=== PATIENT | male | born 1975 | race African-American/Black ===

== ENCOUNTER 2025-01-22 11:12 | Outpatient (AMB) | payer OTHER, SELFPAY ==
--- NOTE | 2025-01-22 11:15 | A.OFFPC_ITS ---
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 He is not on prescription medication. He relocated to the [facility] from [facility] 2 years ago. He has not established with a PCP. Prior PCP? - Never been established with a PCP Acute issue(s) - None Past Medical History - Glaucoma both eye, myopia(wears glasse s) Surgical History - Appendectomy Family History - PGM: HLD - MGM: Alcohol abuse Social History - Nonsmoker. Does not vape. Drinks 2 gla sses of wine once monthly. Denies recreational drug use - Has been making healthy dietary choice s. Active but does not exercise. Reports difficulty staying asleep, sleeps an average of 4-5 hours, snores only when tired Health maintenance - Last eye exam was 3 years ago in [facility]. He has an eye appointment with [facility] in 03/2024 - Last dental visit was last month - Last tetanus vaccine was more than 10 years ago; received Tdap vaccine today - Has not been vaccinated for the flu ; receives the vaccination today - He has never had the shingles vaccine. Encouraged to get the vaccine from the local pharmacy - He has never had a colonoscopy. Referr ed to [facility] gastroenterology for colonoscopy Specialists - None [facility] Medical History (Updated 01/22/25 @ 12:24 by Zeke Yeh CNP) Glaucoma Surgical History (Updated 01/22/25 @ 12:20 by Zeke Yeh CNP) Hx of appendectomy Family History (Updated 01/22/25 @ 11:38 by ROQUE Hawkins) Paternal Grandfather High cholesterol Maternal Grandmother Alcohol abuse Social History (Updated 01/22/25 @ 11:25 by ROQUE Hawkins) Housing: Apartment Patient Tobacco Use Status: Never used Tobacco e-Cigarette/Vaping Use: Never Used Second Hand Smoke Exposure: No service: No 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al status: employed 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 1. Little interest or pleasure in doing things: not at all 2. Feeling down, depressed, or hopeless: not at all 3. Trouble falling or staying asleep, or sleeping too much: nearly every day 4. Feeling tired or having little energy: not at all 5. Poor appetite or overeating: not at all 6. Feeling bad about yourself - or that you are a failure or have let yourself or your family down: not at all 7. Trouble concentrating on things, such as reading the newspaper or watching television: not at all 8. Moving or speaking so slowly that other people could have noticed. Or the opposite - being so fidgety or restless that you have been moving around a lot more than usual: not at all 9. Thoughts that you would be better off or of hurting yourself in some way: not at all Total score: 3 Depression Screening Interpretation: Negative Depression Screening Done: Yes 48739 - PHQ-9 Billing: Yes Source: Developed by Drs. Ankit Perkins, Neisha Barrientos, Feng Dan and colleagues, with an educational meagan from [employer]. Thrive Questionnaire Date Thrive assessed: 01/22/25 I am a: Patient What is your living situation today?: I have a steady place to live Within the past 12 months, did the food you bought not last and you didn't have the money to get more?: Never true Within the past 12 months, did you worry whether your food would run out before you got money to buy more?: Never true Do you have trouble paying for medicines?: No Do you have trouble getting transportation to medical appointments?: No Do you have trouble paying your heating and electricity bill?: No Do you have trouble taking care of your child, family member or friend?: No Do you have trouble with day-to-day activities such as bathing, preparing meals, shopping, managing finances, etc.?: No Are you currently unemployed and looking for a job?: No Are you interested in more education?: Yes Please select the resources that you would like help with: Education Currently or been in a relationship where the following occur: No concerns reported THRIVE Score: 0 AUDIT C Alcohol Use Questionnaire (AUDIT-C) 1. How often do you have a drink containing alcohol?: 2-4 times a month 2. How many drinks containing alcohol do you have on a typical day when you are drinking?: 3 or 4 3. How often do you have six or more drinks on one occasion?: Less than monthly Total Score: 4 Score Reviewed/Action Taken: Yes CHRISTINE-7 AMB Questionnaire CHRISTINE-7 Date CHRISTINE - 7 assessed: 01/22/25 Feeling nervous, anxious, or on edge: 0 = Not at all Not being able to stop or control worryin = Not at all Worrying too much about different things: 0 = Not at all Trouble relaxin = Not at all Being so restless that it is hard to sit still: 1 = Several days Becoming easily annoyed or irritable: 0 = Not at all Feeling afraid as if something awful might happen: 0 = Not at all Total CHRISTINE-7 score (0-4 normal; 5-9 mild; 10-14 moderate; 15-21 severe): 1 Source: Developed by Drs. Ankit Perkins, Neisha Barrientos, Feng Dan and colleagues, with an educational meagan from [employer]. CHRISTINE-7 Assessment Billing CHRISTINE-7 Assessment Tool: CHRISTINE-7 Assessment 90667 Review of Systems Const Details: Denies chills, Denies fatigue, Denies fever(s), Denies headache(s) and Denies weakness HEENT Denies change in vision, Denies dizziness, Denies headache(s), Denies hearing loss, Denies nasal congestion, Denies sinus pain, Denies sinus pressure and Denies sore throat Card Denies chest pain, Denies lightheadedness, Denies dyspnea and Denies other (palpitations) Resp Denies cough, Denies dyspnea and Denies wheezing GI Denies abdominal pain, Denies melena, Denies hematochezia, Denies change in bowel habits, Denies dyspepsia and Denies nausea Denies hematuria and Denies dysuria Musc Denies abnormal gait, Denies myalgias, Denies arthralgias, Denies numbness and Denies tingling Skin/Breast Denies rash, Denies unusual bruising and Denies wounds Neuro Denies abnormal gait, Denies dizziness, Denies headache(s), Denies memory loss, Denies numbness, Denies Sensory deficit (Neuro), Denies tingling and Denies weakness Psych Denies anxiety, Denies depression and Denies memory loss Endo Denies cold intolerance, Denies fatigue, Denies heat intolerance, Denies polydipsia and Denies polyuria Jose/Lymph Denies easy bleeding and Denies easy bruising Aller/Immun Denies wheezing Physical exam (Primary Care) Vital Signs: Last Vital Signs Temp 98.0 F 01/22/25 11:25 Pulse 59 01/22/25 11:25 Resp 16 01/22/25 11:25 BP 112/64 01/22/25 11:25 Pulse Ox 98 01/22/25 11:25 Oxygen Delivery Method Room Air 01/22/25 11:25 BMI result Body Mass Index 26.4 Tobacco/Smoking Status: Tobacco use Status Tobacco use date assessed 01/22/25 01/22/25 11:25 Patient Tobacco Use Status Never used Tobacco 01/22/25 11:25 e-Cigarette/Vaping Use Never Used 01/22/25 11:25 PHQ-9: PHQ-9 Score PHQ-9: Total score 3 01/22/25 12:37 Depression Screening Interpretation: Negative Thrive Assessment: Date of Thrive Assessment Date Thrive assessed 01/22/25 01/22/25 11:19 Currently or been in a relationship where the following occur: No concerns reported Const Other: General: no acute distress, well developed, alert and awake Nutritional Appearance: well nourished Orientation/consciousness: patient oriented x3 HENMT Head: Yes normocephalic and Yes atraumatic Ears: hearing grossly normal bilaterally and TM's normal bilaterally General nose exam: Normal external nose present and Normal nares present Mouth: Normal oral and palatal mucosa present and moist mucous membranes Teeth and gingiva: dentition normal Throat: Yes oropharynx normal Eyes Pupils: Equal, round and reactive pupils present and Pupil accommodation reflex normal EOM: EOMs intact bilaterally Neck Neck: Yes normal visual inspection, Yes no lymphadenopathy and Yes trachea midline Thyroid: Thyroid normal Carotids: no bruits Lymphatic: no lymphadenopathy noted Chest Chest palpation & inspection: normal inspection of the chest Resp Effort & Inspection: normal respiratory effort Auscultation: clear to auscultation bilaterally Cardio Rate: regular rate Rhythm: regular rhythm Heart sounds: S1 normal heart sound present, S2 normal heart sound present, no gallops, no murmurs and no rubs Bruits: no abdominal aortic bruits and no carotid bruits GI Palpation (GI): No Abdominal aortic bruit present, Soft to palpation, nontender, No hepatosplenomegaly present and No Rebound tenderness present Auscultation: normal bowel sounds General: Yes no CVA tenderness Back/Spine/Pelvis Back: no CVA tenderness Cervical Spine: cervical ROM normal and No Cervical spine tenderness Thoracic/Lumbar Spine: thoraco-lumbar ROM normal, No pain with thoraco-lumbar ROM, No thoracic spinal tenderness and No lumbar spinal tenderness Skin General: warm and dry. Normal skin color. Normal skin turgor Lesions: no lesions Rashes: no rashes Trauma: no lacerations or abrasions Wounds: no wounds Nails: normal Neuro General: patient oriented x3, gait normal and CN's II-XI intact bilaterally Cranial nerves: Yes Equal, round and reactive pupils present Cognition (Neuro): normal cognition Gait exam (Neuro): Normal gait present Motor exam (neuro): 5/5 motor strength present throughout Sensory Exam: No Sensory deficit (Neuro) Deep tendon reflexes (DTR's): Right patellar reflex intensity grade: 2+ and Left patellar reflex intensity grade: 2+ Extrem General: Yes normal to inspection, No edema and No calf tenderness Psych Appearance: grossly normal Affect: normal affect Attitude: cooperative Thought process: Normal thought process present Office Procedures Flu Questionnaire Does the patient have a severe egg allergy?: No Does the patient have severe life threatening allergies?: No Does the patient have a fever or illness today?: No Has the patient ever had Guillain-[place] Syndrome?: No Has the patient ever had any past reaction to a flu shot?: No Immunizations Fluarix [id number] (PF) 45 mcg (15 mcg x 3)/0.5 mL IM syringe Performing Provider: Zeke Yeh CNP Performing Location: [facility] Administered by: Carola Quigley RN on 01/22/25 12:35 Dose Route Admin Location Dispensed Lot Number Expiration Date NDC Boilermaker Fitter 0.5 mL IM Right Deltoid 0.5 mL [id number] 09/21/25 18885-894-69 [employer]LAX OSMITHKLINE VIS Given Date VIS Provided VIS Publication Date 01/22/25 Single Vaccine 24 Eligibility Eligibility Date Funding Source Not VFC Eligible 01/22/25 Private Administration Comments: Patient received two vaccines in the right deltoid, the flu shot slightly above and to the left and TDaP slightly below and to the right. Boostrix Tdap 2.5 Lf unit-8 mcg-5 Lf/0.5 mL intramuscular syringe Performing Provider: Zeke Yeh CNP Performing Location: [facility] Administered by: Carola Quigley RN on 01/22/25 12:35 Dose Route Admin Location Dispensed Lot Number Expiration Date NDC Boilermaker Fitter 0.5 mL IM Right Deltoid 0.5 mL [id number] 02/19/27 23516-357-70 GLAX OSMITH[employer]LINE Total Dispensed Waste 0.5 mL 0 % VIS Given Date VIS Provided VIS Publication Date 01/22/25 Single Vaccine 20 Eligibility Eligibility Date Funding Source Not VFC Eligible 01/22/25 Private Administration Comments: Patient received two vaccines in the right deltoid, the flu shot slightly above and to the left and TDaP slightly below and to the right. Coding Level of Care Code New Pt Level 3 (17378) New Pt Prev Care 40-64y(10432) Diagnoses Normal physical examination Z00.00 Sleep disturbance G47.9 Colon cancer screening Z12.11 Laboratory tests ordered as part of a complete physical exam (CPE) Z00.00 Additional Codes CHRISTINE-7 Assessment Billing - CHRISTINE-7 Assessment Tool: CHRISTINE-7 Assessment 57599 ([id number]) PHQ-9 - 19863 - PHQ-9 Billing: Yes ([id number]) Assessment & Plan Assessment & Plan (1) Normal physical examination: Code(s): Z00.00 - Encounter for general adult medical examination without abnormal findings Category: Medical Plan: No significant functional limitation noted. Healthy diet and routine exercise encouraged. Perform lab work and follow-up for a telehealth visit for labs review in 2-3 weeks. Return sooner with symptoms or concerns. Verbalized understanding and agreed with the plan. (2) Sleep disturbance: Code(s): G47.9 - Sleep disorder, unspecified Category: Medical Plan: Reports difficulty staying asleep, sleeps an average of 4-5 hours, snores only when tired. Instructed on sleep hygiene. May take melatonin as needed. Referred to sleep medicine for a sleep study. Verbalized understanding and agreed with the plan. (3) Colon cancer screening: Code(s): Z12.11 - Encounter for screening for malignant neoplasm of colon Category: Medical Plan: He has never had a colonoscopy. Referred to [facility] gastroenterology for colonoscopy. (4) Laboratory tests ordered as part of a complete physical exam (CPE): Code(s): Z00.00 - Encounter for general adult medical examination without abnormal findings Category: Medical Plan: Fasting labs ordered as part of a complete physical exam. Advised to fast for at least 10 hours before getting labs drawn. May drink water Verbalized understanding and agreed with treatment plan. Orders: Orders Complete Blood Count Auto Diff Today Z00.00 - Encounter for general adult medical examination without abnormal findings Comprehensive [place]. Panel Fast Today Z00.00 - Encounter for general adult medical examination without abnormal findings Lipid Panel Today Z00.00 - Encounter for general adult medical examination without abnormal findings UA CC w/rflx Micro + Cult Today Z00.00 - Encounter for general adult medical examination without abnormal findings Vitamin D 25-OH Total Today Z00.00 - Encounter for general adult medical examination without abnormal findings Influenza [id number] Immunization Today Z23 - Encounter for immunization TDaP Immunization Today Z23 - Encounter for immunization Microalbumin, Random (w Creat) Today Z00.00 - Encounter for general adult medical examination without abnormal findings PSA, Ultra Sensitive Today Z00.00 - Encounter for general adult medical examination without abnormal findings TSH reflex Free T4 Today Z00.00 - Encounter for general adult medical examination without abnormal findings Referrals Gastroenterology Referral Z12.11 - Encounter for screening for malignant neoplasm of colon Sleep Medicine Referral G47.9 - Sleep disorder, unspecified
[2025-01-22 11:25] VITALS: BP 112/64; PULSE 59; RESP 16; TEMP 36.7; O2SAT 98; BMI 26.4
== END 2025-01-22 12:30 | disposition home or self-care (01) ==
LOC: HO.HMCFM 11:12
PROVIDERS: PCP Nurse Practitioner Family; Visit Provider Nurse Practitioner Family
DX: Z00.00 Encounter for general adult medical examination without abnormal findings (principal); G47.9 Sleep disorder, unspecified; Z23 Encounter for immunization

== ENCOUNTER → 2025-01-22 11:12 | Outpatient (BNVA) | payer OTHER, SELFPAY | PROVIDERS: PCP Nurse Practitioner Family; Visit Provider Nurse Practitioner Family | DX: Z00.00 Encounter for general adult medical examination without abnormal findings (principal); G47.9 Sleep disorder, unspecified; Z23 Encounter for immunization | CPT/HCPCS: 90471; 90472; 90656; 90715; 96127; 99202; 99386 ==

== ENCOUNTER 2025-02-04 12:56 | Outpatient (AMB) | payer OTHER, SELFPAY ==
[2025-02-04 13:00] VITALS: BP 124/70; PULSE 60; TEMP 36.7; O2SAT 99; BMI 26.9
--- NOTE | 2025-02-04 13:00 | AM.OFFWIN_ITS ---
Intake Vital Signs 02/04/25 13:00 Height 5 ft 9 in Weight 182 lb BMI 26.9 BP 124/70 Blood Pressure Location Lt brachial Position Sitting Pulse 60 Pulse Source Pulse Oximeter Temp 98.0 F Temp Source Oral Pulse Oximetry (%) 99 Oxygen Delivery Method Room Air Intake Visit Reasons: ep rt hand cut Intake Note: pt presents with cut to left thumb from a knife while washing dishes today Patient Tobacco Use Status: Never used Tobacco Allergies No Known Allergies Allergy (Verified 02/04/25 13:02) Do you need a note to return to daycare/school/sports/work: No HPI HPI Comments History of Present Illness Details History of Present Illness - The patient is a 49-year-old male pres enting with a laceration of the thumb on the right. - The laceration occurred while washing a knife at home this morning. - The patient confirmed that the bleedin g has stopped and there is no numbness or tingling in the hand. - The patient is up to date with tetanus prophylaxis. - He denies hand pain, wrist pain, or FB noted. Physical Exam General: Cooperative, healthy appearing, comfortable, no acute distress and well developed Orientation: Patient oriented x3 Respiratory: Normal respiratory effort and able to speak in complete sentences. Clear to auscultation bilaterally Cardiovascular: Regular rate and rhythm. Normal S1 and S2 Skin: 2 1/2 cm laceration to the right base of the thumb on the volar aspect. Active bleeding noted. Neuro: Sensation intact. Extremities: Normal to inspection. FROM of the right thumb. No TTP of the right thumb. Patient was informed and verbally consented to the use of an ambient scribe for clinic note documentation during this visit. 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al exposures/hazards: No Cognitive needs: No Hearing needs: No Vision needs: Yes Review of Systems Const All systems reviewed & are unremarkable except as noted in HPI and below Physical Exam Vital Signs: Last Vital Signs Temp 98.0 F 02/04/25 13:00 Pulse 60 02/04/25 13:00 BP 124/70 02/04/25 13:00 Pulse Ox 99 02/04/25 13:00 Oxygen Delivery Method Room Air 02/04/25 13:00 BMI result Body Mass Index 26.9 Office Procedures AMB Laceration Repair Laceration repair performed by: Faith Singh Informed consent given: Yes Location: right thumb Length: 2 1/2 Sedation: No Anesthesia: 2% lidocaine Irrigation: saline Preparation: betadine Wound exploration: fb-foreign body (none seen) Deep closure: No Skin closure: nylon Technique: #5 simple interrupted sutures placed in the right thumb. Topical treatment: triple antibiotic Tetanus toxoid ordered: No Patient tolerated procedure: [place] [id number] Repair <2.5cm Procedure code (CPT) selection complete Office Meds lidocaine HCl 10 mg/mL (1 %) injection solution Performing Provider: Faith Singh PA-C Performing Location: [facility] [place] [facility] Administered by: Faith Singh PA-C on 02/04/25 14:18 Dose Route Admin Location Dispensed Lot Number Expiration Date [facility] Scrub Nurse 2 mL subcut 2 mL [id number] 08/21/26 52444-745-74 Total Dispensed Waste 2 mL 0 % Assessment & Plan Assessment & Plan (1) Thumb laceration: Code(s): S61.019A - Laceration without foreign body of unspecified thumb without damage to nail, initial encounter Qualifiers: Encounter type: initial encounter Damage to nail status: without damage Foreign body presence: without foreign body Laterality: right Qualified Code(s): S61.011A - Laceration without foreign body of right thumb without damage to nail, initial encounter Plan Most likely laceration plan - Clean and suture the laceration under local anesthesia with lidocaine. - Ensure tetanus prophylaxis is up to date. - Advise on wound care and signs of infection to monitor. - tylenol or motrin as needed - keep area clean and dry - Have sutures removed in 7-10 days - follow up with PCP Orders: Orders AMB Laceration Repair Today S61.019A - Laceration without foreign body of unspecified thumb without damage to nail, initial encounter Coding Level of Care Code Est Pt Level 3 (55478) Diagnoses Laceration of right thumb without foreign body without damage to nail, initial encounter S61.011A Encounter type: initial encounter Damage to nail status: without damage Foreign body presence: without foreign body Laterality: right CPT Codes Office Procedure - Laceration Repair 1: [id number] Repair <2.5cm ([id number])
== END 2025-02-04 14:24 | disposition home or self-care (01) ==
PROVIDERS: PCP Nurse Practitioner Family; Visit Provider Physician Assistant Medical
DX: S61.011A Laceration without foreign body of right thumb without damage to nail, initial encounter (principal)

== ENCOUNTER → 2025-02-04 12:56 | Outpatient (BNVA) | payer OTHER, SELFPAY | PROVIDERS: PCP Nurse Practitioner Family; Visit Provider Physician Assistant Medical | DX: S61.011A Laceration without foreign body of right thumb without damage to nail, initial encounter (principal) | CPT/HCPCS: 12001; 99212; J2003 ==

== ENCOUNTER 2025-02-11 11:37 | Outpatient (AMB) | payer OTHER, SELFPAY ==
[2025-02-11 11:41] VITALS: BP 120/74; PULSE 48; TEMP 36.8; O2SAT 98; BMI 26.9
--- NOTE | 2025-02-11 11:41 | MHC.OFFWIV ---
Intake Vital Signs 02/11/25 11:41 Height 5 ft 9 in Weight 182 lb BMI 26.9 BP 120/74 Blood Pressure Location Rt brachial Position Sitting Pulse 48 L Pulse Source Pulse Oximeter Temp 98.3 F Temp Source Oral Pulse Oximetry (%) 98 Oxygen Delivery Method Room Air Intake Visit Reasons: EP right thumb blister Intake Note: pt is here for Suture Removal, notes some mild pain and swelling to wound Patient Tobacco Use Status: Never used Tobacco Allergies No Known Allergies Allergy (Verified 02/11/25 11:55) Do you need a note to return to daycare/school/sports/work: No HPI HPI Comments History of Present Illness Details 49 y/o Male presents to the walk-in clinic for right thumb suture removal. He reports accidental laceration while washing dishes 8 days ago; was treated here with 4?5 sutures. He was instructed to return in 7?10 days for removal. Denies fevers, chills, bleeding, drainage, redness, or pain. No concerns expressed today. 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al exposures/hazards: No Cognitive needs: No Hearing needs: No Vision needs: Yes Review of Systems Const All systems reviewed & are unremarkable except as noted in HPI and below Physical Exam Vital Signs: Last Vital Signs Temp 98.3 F 02/11/25 11:41 Pulse 48 L 02/11/25 11:41 BP 120/74 02/11/25 11:41 Pulse Ox 98 02/11/25 11:41 Oxygen Delivery Method Room Air 02/11/25 11:41 BMI result Body Mass Index 26.9 Const General: no acute distress Orientation/consciousness: patient oriented x3 Neuro General: patient oriented x3 and gait normal Extrem Other: Right thumb: Well-approximated linear laceration; sutures intact. No erythema, warmth, swelling, purulence, or wound dehiscence. No active bleeding. Normal cap refill and sensation to distal thumb. Full ROM of thumb without discomfort. Psych Speech and movement: Normal speech and movement present Assessment & Plan Assessment & Plan (1) Visit for suture removal: Code(s): Z48.02 - Encounter for removal of sutures Plan: Wound healing appropriately with no signs of infection. All sutures removed - small area of open skin/wound noted - wound reinforced with Dermbond Glue and Steris. Instructed patient to keep the area clean and dry for 24 hours; then may resume regular washing. Avoid heavy gripping or friction to the area for the next few days. Return precautions reviewed: redness, warmth, swelling, drainage, increased pain, or wound reopening. Coding Level of Care Code Est Pt Level 4 (78206) Diagnoses Visit for suture removal Z48.02 Time Spent (min) 20
== END 2025-02-11 12:46 | disposition home or self-care (01) ==
PROVIDERS: PCP Nurse Practitioner Family; Visit Provider Nurse Practitioner Family
DX: Z48.02 Encounter for removal of sutures (principal)

== ENCOUNTER → 2025-02-11 11:37 | Outpatient (BNVA) | payer OTHER, SELFPAY | PROVIDERS: PCP Nurse Practitioner Family; Visit Provider Nurse Practitioner Family | DX: Z48.02 Encounter for removal of sutures (principal); S61.011D Laceration without foreign body of right thumb without damage to nail, subsequent encounter | CPT/HCPCS: 99212 ==

== ENCOUNTER 2025-02-12 11:23 | Outpatient (AMB) | payer OTHER, SELFPAY ==
--- NOTE | 2025-02-12 11:41 | MHC.OFFVIS ---
Vital Signs 02/12/25 11:46 Height 5 ft 9 in Weight 182 lb BMI 26.9 BP 130/84 Blood Pressure Location Rt brachial Position Sitting Pulse 54 Pulse Source Pulse Oximeter Pulse Oximetry (%) 97 Oxygen Delivery Method Room Air Intake Visit Reasons: INP-sleep disorder Intake Note: Patient presents [employer] Sleep Disorder. Reports difficulty staying asleep, sleeps an average of 4-5 hours, snores only when tired. No apnea/gasping. No history of sleep studies. Accompanied by: Self / Same As Patient Allergies No Known Allergies Allergy (Verified 02/12/25 11:45) HPI Comments Details: 49 year old male is referred for an evaluation of NEEMA, by his PCP Dr. Catalan. He has trouble staying asleep for many years now. He works two jobs one at [employer] and second at [employer]. He goes to bed at 9pm and wakes up at 10am with one bathroom break at night. He snores loudly and wakes himself up multiple times at night. He tosses and turns a lot, then stays wide awake all night. He is chronically fatigued in the mornings. He has glaucoma and administers drops as needed. Memory is stable. Mood is stable. Diet stable. Denies smoking, mj, edibles, alcohol use only socially. Denies morning headaches, gasping for air, GERD, RLS symptoms, parasomnias, abnormal movements in sleep, sleep walking / talking and vivid dreams. 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al exposures/hazards: No Cognitive needs: No Hearing needs: No Vision needs: Yes Physical Exam Vital Signs: Last Vital Signs Pulse 54 02/12/25 11:46 BP 130/84 02/12/25 11:46 Pulse Ox 97 02/12/25 11:46 Oxygen Delivery Method Room Air 02/12/25 11:46 BMI result Body Mass Index 26.9 Const General: cooperative, comfortable and no acute distress Nutritional Appearance: average body habitus Orientation/consciousness: patient oriented x3 HEENT Face and sinus: Yes face symmetric Teeth and gingiva: other (mallampti score is 4) Eyes Pupils: Equal, round and reactive pupils present Neck Neck: Yes full ROM Resp Effort & Inspection: normal respiratory effort and able to speak in complete sentences Neuro General: patient oriented x3 and moves all extremities Cranial nerves: Yes Equal, round and reactive pupils present, Yes Normal facial strength present, Yes Midline tongue present and Yes Ability to bilaterally rotate head present Cognition (Neuro): normal cognition Gait exam (Neuro): Normal gait present Motor exam (neuro): 5/5 motor strength present throughout and Normal motor muscle tone present throughout Psych Appearance: grossly normal Thought process: Normal thought process present Thought content: Normal thought content present Results Reviewed Results Reviewed: Note from PCP Palak Thumb laceration. Assessment & Plan Assessment & Plan (1) Excessive daytime sleepiness: Code(s): G47.19 - Other hypersomnia Category: Medical (2) Loud snoring: Code(s): R06.83 - Snoring Category: Medical (3) Fatigue: Code(s): R53.83 - Other fatigue Category: Medical Qualifiers: Fatigue type: chronic, unspecified Qualified Code(s): R53.82 - Chronic fatigue, unspecified Plan HST to r/o NEEMA Fatigue will f/u with labs. F/U in 3 months Orders: Orders RT home sleep study Today G47.19 - Other hypersomnia Patient Instructions: Please complete the following fasting labs to rule out deficiencies. CBC/CMP/ B12/ Vit D/ TSH/ Homocysteine and MMA/ Ferritin. Sleep Hygiene provided: set a scheduled bedtime and wake time to help regulate the circadian rhythm and balance the release of pituitary hormones. Sleep in a dark room, temperatures below 68 degrees, and no devices n bed. Limit caffeinated products 6 hours prior to bed, and limit fluids 2-4 hours prior to bed. Gentle night yoga, diffusing essential oils, and playing soft music can be relaxing. Coding Level of Care Code New Pt Level 4 (40532) Diagnoses Excessive daytime sleepiness G47.19 Loud snoring R06.83 Chronic fatigue R53.82 Fatigue type: chronic, unspecified Sleep Questionnaire Difficulty falling asleep: No Difficulty staying asleep?: Yes Number of arousals: 1 Snoring: Yes Witnessed apneas: No Gasping arousals: No Nocturia: No GERD: No Vivid dreams: No Acting out dreams: No Abnormal behavior in sleep: No Abnormal movements in sleep: No Morning headaches: No Excessive daytime sleepiness: No Daytime naps: No Restless legs: No Hallucinations: No Sleep paralysis: Yes Drop attacks: No Sleep Study: No CPAP: No
[2025-02-12 11:46] VITALS: BP 130/84; PULSE 54; O2SAT 97; BMI 26.9
== END 2025-02-12 12:38 | disposition home or self-care (01) ==
LOC: HO.HSMS 11:24
PROVIDERS: PCP Nurse Practitioner Family; Visit Provider Physician Assistant Medical
DX: G47.19 Other hypersomnia (principal); R06.83 Snoring; R53.82 Chronic fatigue, unspecified
CPT/HCPCS: 99204

== ENCOUNTER → 2025-02-12 11:23 | Outpatient (BNVA) | payer OTHER, SELFPAY | PROVIDERS: PCP Nurse Practitioner Family; Visit Provider Physician Assistant Medical | DX: R06.83 Snoring (principal); R53.82 Chronic fatigue, unspecified; G47.19 Other hypersomnia | CPT/HCPCS: 99202 ==

== ENCOUNTER 2025-02-26 09:44 | Outpatient (REF) | payer OTHER, SELFPAY ==
[2025-02-26 13:04] LABS: MANUAL DIFF FLAG NO
[2025-02-26 13:20] LABS: Hematocrit 45.7 % (42.0-52.0); Hemoglobin 15.1 g/dl (14.0-18.0); Imm Gran Abs Auto 0.01 X10*3/uL (0.00-0.03); Imm Gran Pct Auto 0.3 % (0.0-0.4); Lymphocytes Absolute Auto 1.7 X10*3/uL (1.2-4.9); Mean Corpuscular HGB Conc 33.0 g/dl (31.0-36.0); Mean Corpuscular Hemoglobin 29.3 pg (27.0-33.0); Mean Corpuscular Volume 88.6 fL (80.0-98.0); NRBC Abs Auto 0.000 X10*3/uL (0.0-0.012); NRBC Pct Auto 0.0 /100WBC (0.0-0.2); Platelet Count 235 X10*3/uL (160-400); Red Blood Count 5.16 X10*6/uL (4.60-5.80); White Blood Count 3.6 X10*3/uL (4.8-10.8)
[2025-02-26 13:37] LABS: Appearance Urine Clear; Glucose Urine UA Negative (Negative); PH 6.5 (5.0-9.0); Specific Gravity - Urine 1.020 (1.005-1.025)
[2025-02-26 14:23] LABS: Microalbum/Creatinine Ratio Ur 3.0 ug/mg cr (<30)
[2025-02-26 14:28] LABS: Alanine Aminotransferase 41 U/L (0-40); Albumin Level 4.5 g/dL (3.5-5.0); Alkaline Phosphatase 80 U/L (39-117); Anion Gap 9 (12-20); Aspartate Amino Transferase 55 U/L (5-37); Blood Urea Nitrogen 13 mg/dL (9-16); Calcium 9.3 mg/dL (8.4-10.2); Carbon Dioxide 26 mmol/L (22-29); Chloride 108 mmol/L (96-108); Cholesterol 250 mg/dL (<200); Estimated Glomerular Filt Rate > 60; HDL Cholesterol 45 mg/dL (>40); Potassium 4.4 mmol/L (3.3-5.1); Sodium 139 mmol/L (135-145); Total Protein 7.6 g/dL (6.5-8.0); Triglycerides 77 mg/dL (<150)
[2025-03-03 02:38] LABS: PSA, Ultra Sensitive 0.69 ng/mL
== END 2025-02-26 09:45 | disposition home or self-care (01) ==
LOC: HO.HMGCLDS 09:44
PROVIDERS: PCP Nurse Practitioner Family; Visit Provider Nurse Practitioner Family
DX: Z00.00 Encounter for general adult medical examination without abnormal findings (principal)
CPT/HCPCS: 36415; 80053; 80061; 81003; 82043; 82306; 82570; 84153; 84443; 85025

== ENCOUNTER 2025-03-08 10:41 | Outpatient (AMB) | payer OTHER, SELFPAY ==
--- NOTE | 2025-03-08 11:04 | MHC.PC.OV ---
Vital Signs 03/08/25 11:07 Height 5 ft 9 in Weight 181 lb 6 oz BMI 26.8 BP 100/70 Blood Pressure Location Rt brachial Position Sitting Respiration 15 Pulse 61 Pulse Source Pulse Oximeter Temp 98.1 F Temp Source Temporal Artery Scan Pulse Oximetry (%) 97 Oxygen Delivery Method Room Air Intake Visit Reasons: basilia with anjana 2-3 wks labs review Intake Note: Dominic presents in the office today to establish care with new provider and go over his most recent lab work. Attending Physician Required: No Allergies No Known Allergies Allergy (Verified 03/08/25 11:06) Tobacco use date assessed: 03/08/25 Dental Screening Dental Screen Date: 03/08/25 Did you have a dental visit in the last 12 months?: Yes Did you have a dental problem in the last 6 months where you did not have access to dental care?: No Was dental information given to patient?: Patient has dentist HPI HPI Comments History of Present Illness Details This is a 49-year-old male presenting to transfer care from my colleague who is leaving the practice. The patient had a physical exam in December. He has a consult for colonoscopy scheduled in March. He had lab work completed which shows elevated LDL cholesterol at 190, elevated LFTs and a mildly decreased white blood cell count at 3600. Denies recent infections, fevers, chills or night sweats. He has no known family history of cardiovascular disease or high cholesterol. He does not smoke. He drinks alcohol lately. He has been eating a lot of high-cholesterol foods. He has red meat every day. He is active. He does not take any medications. His fasting blood sugar was also mildly elevated at 104. No known family history of diabetes. ROS: Constitutional: No unexplained weight loss, fever, chills, fatigue or night sweats. Respiratory: No shortness of breath Cardiovascular: No chest pain Gastrointestinal: No anorexia, nausea, vomiting or diarrhea. No abdominal pain or blood in stool.. Hematologic/Lymphatics: No bleeding or bruising. No painful lymph nodes. Skin: No rash or itching. No jaundice. Endocrine: No polyuria or polydipsia Physical exam: Constitutional: Alert, in no distress. Neck: Supple, Full range of motion. No lymphadenopathy. Respiratory: Clear to auscultation. Cardiovascular: S1 S2 regular. No murmurs. Gastrointestinal: Abdomen soft, non-tender, non-distended. Normal bowel sounds. No palpable masses. No hepatosplenomegaly. Skin: No jaundice. Extremities: Warm and well perfused. No clubbing, cyanosis or edema. Psychiatric: Normal mood and affect COUNTS INCLUDE 234 BEDS AT THE [facility] Medical History (Updated 03/08/25 @ 11:39 by NOLVIA Basurto) Impaired fasting glucose Pure hypercholesterolemia Elevated LFTs Decreased leukocytes Visit for suture removal Glaucoma Surgical History Hx of appendectomy Family History Paternal Grandfather High cholesterol Maternal Grandmother Alcohol abuse Social History (Updated 03/08/25 @ 11:07 by Meenakshi Adams [facility]) Housing: Apartment Alcohol intake: never Patient Tobacco Use Status: Never used Tobacco e-Cigarette/Vaping Use: Never Used Second Hand Smoke Exposure: No service: No 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al status: employed 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: long-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al exposures/hazards: No Cognitive needs: No Hearing needs: No Vision needs: Yes Questionnaire Thrive Questionnaire Date Thrive assessed: 01/18/25 I am a: Patient What is your living situation today?: I have a steady place to live Within the past 12 months, did the food you bought not last and you didn't have the money to get more?: Never true Within the past 12 months, did you worry whether your food would run out before you got money to buy more?: Never true Do you have trouble paying for medicines?: No Do you have trouble getting transportation to medical appointments?: No Do you have trouble paying your heating and electricity bill?: No Do you have trouble taking care of your child, family member or friend?: No Do you have trouble with day-to-day activities such as bathing, preparing meals, shopping, managing finances, etc.?: No Are you currently unemployed and looking for a job?: No Are you interested in more education?: Yes Please select the resources that you would like help with: Education Currently or been in a relationship where the following occur: No concerns reported THRIVE Score: 0 CHRISTINE-7 AMB Questionnaire CHRISTINE-7 Date CHRISTINE - 7 assessed: 01/22/25 Source: Developed by Drs. Ankit LNeisha Aguilar Kurt Kroenke and colleagues, with an educational meagan from [employer]. Physical exam (Primary Care) Vital Signs: Last Vital Signs Temp 98.1 F 03/08/25 11:07 Pulse 61 03/08/25 11:07 Resp 15 03/08/25 11:07 BP 100/70 03/08/25 11:07 Pulse Ox 97 03/08/25 11:07 Oxygen Delivery Method Room Air 03/08/25 11:07 BMI result Body Mass Index 26.8 Tobacco/Smoking Status: Tobacco use Status Tobacco use date assessed 03/08/25 03/08/25 11:09 Patient Tobacco Use Status Never used Tobacco 03/08/25 11:09 e-Cigarette/Vaping Use Never Used 03/08/25 11:09 Thrive Assessment: Date of Thrive Assessment Date Thrive assessed 01/18/25 03/08/25 11:09 Currently or been in a relationship where the following occur: No concerns reported Coding Level of Care Code Est Pt Level 4 (36484) Add On Problem Visit Only Diagnoses Decreased leukocytes D72.819 Elevated LFTs R79.89 Pure hypercholesterolemia E78.00 Impaired fasting glucose R73.01 Assessment & Plan Assessment & Plan (1) Decreased leukocytes: Code(s): D72.819 - Decreased white blood cell count, unspecified Category: Medical Plan: Repeat CBC. Check iron, B12, ferritin in 4-6 weeks. (2) Elevated LFTs: Code(s): R79.89 - Other specified abnormal findings of blood chemistry Category: Medical Plan: Recheck in 4-6 weeks. Decrease high-cholesterol foods, processed foods, avoid alcohol. If liver enzymes remain elevated check liver ultrasound. Ordered screening tests for hepatitis a, B and C. (3) Pure hypercholesterolemia: Code(s): E78.00 - Pure hypercholesterolemia, unspecified Category: Medical Plan: We discussed that elevated cholesterol is a risk factor for cardiovascular disease. Recommended implementing a trial of lifestyle modifications. Patient says it would be feasible to do this after the holiday season so he will recheck labs in 4 months and see me back for an appointment at that time. Recommended the Mediterranean diet and cardiovascular exercise at least 5 days per week. Avoid red meat, full fat dairy products. Increase lean proteins and fibrous fruits and vegetables. (4) Impaired fasting glucose: Code(s): R73.01 - Impaired fasting glucose Category: Medical Plan: Check hemoglobin A1c with labs. Recommended decreasing carbohydrates and sugars. Plan Follow up in 4 months. Orders: Orders Hemoglobin A1c Today D72.819 - Decreased white blood cell count, unspecified, E78.00 - Pure hypercholesterolemia, unspecified, R73.9 - Hyperglycemia, unspecified, R79.89 - Other specified abnormal findings of blood chemistry Complete Blood Count Auto Diff Today D72.819 - Decreased white blood cell count, unspecified, E78.00 - Pure hypercholesterolemia, unspecified, R79.89 - Other specified abnormal findings of blood chemistry Vitamin B12 and Folate Today D72.819 - Decreased white blood cell count, unspecified, E78.00 - Pure hypercholesterolemia, unspecified, R79.89 - Other specified abnormal findings of blood chemistry Lipid Panel 4 Months E78.5 - Hyperlipidemia, unspecified Hepatitis A IgM Today D72.819 - Decreased white blood cell count, unspecified, E78.00 - Pure hypercholesterolemia, unspecified, R79.89 - Other specified abnormal findings of blood chemistry Hepatitis A,B,C Profile Today D72.819 - Decreased white blood cell count, unspecified, E78.00 - Pure hypercholesterolemia, unspecified, R79.89 - Other specified abnormal findings of blood chemistry IRON PROFILE Today D72.819 - Decreased white blood cell count, unspecified, E78.00 - Pure hypercholesterolemia, unspecified, R79.89 - Other specified abnormal findings of blood chemistry Ferritin Today D72.819 - Decreased white blood cell count, unspecified, E78.00 - Pure hypercholesterolemia, unspecified, R79.89 - Other specified abnormal findings of blood chemistry
[2025-03-08 11:07] VITALS: BP 100/70; PULSE 61; RESP 15; TEMP 36.7; O2SAT 97; BMI 26.8
== END 2025-03-08 11:34 | disposition home or self-care (01) ==
LOC: HO.HMCFM 10:42
PROVIDERS: PCP Physician Assistant Medical; Visit Provider Physician Assistant Medical
DX: D72.819 Decreased white blood cell count, unspecified (principal); R79.89 Other specified abnormal findings of blood chemistry; E78.00 Pure hypercholesterolemia, unspecified; R73.01 Impaired fasting glucose

== ENCOUNTER → 2025-03-08 10:41 | Outpatient (BNVA) | payer OTHER, SELFPAY | PROVIDERS: PCP Nurse Practitioner Family; Visit Provider Physician Assistant Medical | DX: Z76.89 Persons encountering health services in other specified circumstances (principal); R73.01 Impaired fasting glucose; E78.00 Pure hypercholesterolemia, unspecified; D72.819 Decreased white blood cell count, unspecified; R79.89 Other specified abnormal findings of blood chemistry | CPT/HCPCS: 99212 ==